=== PATIENT | female | born 1985 | race Caucasian/White ===

== ENCOUNTER 2017-10-04 02:02 | Emergency (ER) | payer OTHER ==
[~2017-10-04] VITALS: Ht 162.6 cm; Wt 113.9 kg
[~2017-10-04 02:02] MED LIST: ACET500C5 PO; AMOX500C2 PO; BEN25 PO; DENIES MEDS; HYDR-3498 PO; IBUP400T22 PO; NITR-58 PO; OMEP20CA9 PO; PRED50TA PO; UDMYL PO; UDROBDM PO
[2017-10-04 02:07] VITALS: Ht 162.6 cm; Wt 113.9 kg
[2017-10-04] MEDS ORDERED: ONDANSETRON 4 MG INJ IV STA (03:16)
[2017-10-04] MEDS ORDERED: SOD CHLORIDE 0.9% 1,000 ML IV STA (03:16)
[2017-10-04] MEDS ORDERED: FAMOTIDINE 20 MG INJ IV STA (03:16)
[2017-10-04] MEDS ORDERED: morphine 4 MG/ML VIAL IV STA (03:16)
[2017-10-04 04:01] LABS: ADD UMIC YES; UR ASCORBIC ACID NEGATIVE (NEGATIVE); UR BACTERIA FEW /HPF (NONE SEEN); UR BILIRUBIN (Dip) NEGATIVE (NEGATIVE); UR BLOOD (Dip) NEGATIVE (NEGATIVE); UR CLARITY CLEAR (CLEAR); UR COLOR YELLOW (YELLOW); UR GLUCOSE (Dip) 1+ mg/dL (NEGATIVE); UR KETONES (Dip) 2+ mg/dL (NEGATIVE); UR LEUKOCYTE ESTERASE (Dip) TRACE Leu/ul (NEGATIVE); UR MUCUS MANY /HPF (NONE SEEN); UR NITRITE (Dip) NEGATIVE (NEGATIVE); UR RBC 3 /HPF (0-5); UR SPECIFIC GRAVITY (Dip) 1.029 (1.003-1.030); UR SQUAMOUS EPITHELIAL CELL FEW /HPF (FEW); UR TOTAL PROTEIN (Dip) 2+ mg/dl (NEGATIVE); UR UROBILINOGEN (Dip) NEGATIVE (NEGATIVE)
--- NOTE | 2017-10-04 04:08 | ERD ---
ER Documentation Chief Complaint Chief Complaint vomiting for 3 days unable to hold down fluids HPI 31-year-old female presents here to emergency department for complaints of vomiting episodes that started 3 days ago. Patient also has periumbilical pain. Patient is complaining of body aches also. Patient has been having on and off periumbilical pelvic pain, sharp pain, not better or worse with anything. Patient also started vomiting and states that abdominal pain becomes worse with vomiting. Patient last menstruation was in August, cannot remember when. Patient denies any vaginal bleeding. Patient denies any flank pain. Patient denies any hematuria or dysuria. ROS All systems reviewed and are negative except as per history of present illness. Medications Home Meds Active Scripts Magaldrate/Simethicone* (Mag-Al Plus Suspension*) 30 Ml Oral.susp, 30 ML PO Q6H Y for GASTROINTESTINAL UPSET, #120 ML Prov:TRAN ARAUJO NP 06/08/16 Omeprazole* (Prilosec*) 20 Mg Capsule.dr, 20 MG PO DAILY, #30 CAP Prov:TRAN ARAUJO NP 06/08/16 Prednisone* (Prednisone*) 50 Mg Tablet, 50 MG PO DAILY, #5 TAB Prov:TRAN ARAUJO NP 06/08/16 Diphenhydramine Hcl* (Benadryl*) 25 Mg Cap, 25 MG PO Q6 Y for ITCHING/RASH, #30 TAB Prov:TRAN ARAUJO NP 06/08/16 Hydrocodone Bit-Acetaminophen* ([place]*) 5-325 Mg Tab, 1 TAB PO Q6 Y for PAIN, # 20 TAB Prov:TRAN ARAUJO NP 06/08/16 Nitrofurantoin Monohyd Macrocr* (Macrobid*) 100 Mg Capsr, 100 MG PO BID for 7 Days, CAP Prov:TRAN ARAUJO NP 06/08/16 Amoxicillin* (Amoxicillin*) 500 Mg Cap, 500 MG PO TID, #21 CAP 0 Refills Prov:BISHOP THOMPSON PA-C 02/06/16 Guaifenesin-Dextromethorphan* (Robitussin* DM) 100MG/10MG/5ML Syrup, 5 ML PO Q6H Y for COUGH, #120 ML 0 Refills Prov:BISHOP THOMPSON PA-C 02/06/16 Ibuprofen* (Motrin*) 400 Mg Tab, 400 MG PO Q6, #30 TAB 0 Refills Prov:BISHOP THOMPSON PA-C 02/06/16 Acetaminophen* (Tylophen*) 500 Mg Capsule, 1 CAP PO Q6H Y for PAIN AND OR ELEVATED TEMP, #30 CAP 0 Refills Prov:BISHOP THOMPSON PA-C 02/06/16 Reported Medications [Denies Meds] No Conflict Check 01/13/11 Allergies Allergies: Coded Allergies: No Known Drug Allergies (Verified Allergy, Mild, 10/04/17) PMhx/Soc History of Surgery: Yes ( x2) Anesthesia Reaction: No Hx Neurological Disorder: No Hx Respiratory Disorders: No Hx Cardiac Disorders: No Hx Psychiatric Problems: No Hx Miscellaneous Medical Probl: No Hx Alcohol Use: No Hx Substance Use: No Hx Tobacco Use: No Smoking Status: Never smoker FmHx Family History: No coronary disease, No diabetes, No other Physical Exam Vitals Vital Signs Date Time Temp Pulse Resp B/P Pulse Ox O2 Delivery O2 Flow Rate FiO2 10/04/17 02:07 97.9 60 24 151/77 100 Physical Exam GENERAL: The patient is well developed and appropriate for usual state of health, in no apparent distress. CHEST: Clear to auscultation bilaterally. There are no rales, wheezes or rhonchi. HEART: Regular rate and rhythm. No murmurs, clicks, rubs or gallops. No S3 or S4. ABDOMEN: Soft, nontender and nondistended. Good bowel sounds. No rebound or guarding. No gross peritonitis. No gross organomegaly or masses. No Vega sign or McBurney point tenderness. BACK: No midline or flank tenderness. EXTREMITIES: Equal pulses bilaterally. There is no peripheral clubbing, cyanosis or edema. No focal swelling or erythema. Full range of motion. Grossly neurovascularly intact. NEURO: Alert and oriented. Cranial nerves 2-12 intact. Motor strength in all 4 extremities with 5/5 strength. Sensation grossly intact. Normal speech and gait. SKIN: There is no apparent rash or petechia. The skin is warm and dry. HEMATOLOGIC AND LYMPHATIC: There is no evidence of excessive bruising or lymphedema. No gross cervical, axillary, or inguinal lymphadenopathy. Result Diagram: 10/04/17 0340 10/04/17 0340 Results 24 hrs Laboratory Tests Test 10/04/17 03:30 10/04/17 03:40 Urine Color YELLOW Urine Clarity CLEAR Urine pH 6.0 Urine Specific [place] 1.029 Urine Ketones 2+mg/dL Urine Nitrite NEGATIVEmg/dL Urine Bilirubin NEGATIVEmg/dL Urine Urobilinogen NEGATIVEmg/dL Urine Leukocyte Esterase TRACELeu/ul Urine Microscopic RBC 3/HPF Urine Microscopic WBC 1/HPF Urine Squamous Epithelial Cells FEW/HPF Urine Bacteria FEW/HPF Urine Mucus MANY/HPF Urine Hemoglobin NEGATIVEmg/dL Urine Glucose 1+mg/dL Urine Total Protein 2+mg/dl White Blood Count 12.510^3/ul Red Blood Count 5.2210^6/ul Hemoglobin 14.9g/dl Hematocrit 45.1% Mean Corpuscular Volume 86.4fl Mean Corpuscular Hemoglobin 28.5pg Mean Corpuscular Hemoglobin Concent 33.0g/dl Red Cell Distribution Width 13.3% Platelet Count 04135^3/UL Mean Platelet Volume 10.2fl Neutrophils % 90.8% Lymphocytes % 6.6% Monocytes % 1.9% Eosinophils % 0.0% Basophils % 0.2% Nucleated Red Blood Cells % 0.0/100WBC Neutrophils # 11.310^3/ul Lymphocytes # 0.810^3/ul Monocytes # 0.210^3/ul Eosinophils # 0.010^3/ul Basophils # 0.010^3/ul Nucleated Red Blood Cells # 0.010^3/ul Sodium Level 143mmol/L Potassium Level 3.6mmol/L Chloride Level 107mmol/L Carbon Dioxide Level 24mmol/L Anion Gap 16 Blood Urea Nitrogen 8mg/dl Creatinine 0.66mg/dl Glucose Level 124mg/dl Calcium Level 9.2mg/dl Total Bilirubin 0.5mg/dl Direct Bilirubin 0.00mg/dl Indirect Bilirubin 0.5mg/dl Aspartate Amino Transf (AST/SGOT) 21IU/L Alanine Aminotransferase (ALT/SGPT) 30IU/L Alkaline Phosphatase 71IU/L Total Protein 7.6g/dl Albumin 4.4g/dl Globulin 3.20g/dl Albumin/Globulin Ratio 1.37 Lipase 50U/L Beta HCG, Quantitative 09048.0mIU/ml Current Medications Medications (Trade) Dose Ordered Sig/Lidia Route PRN Reason Start Time Stop Time Status Last Admin Dose Admin Sodium Chloride (NS) 1,000 ml @ 1,000 mls/hr Q1H STAT IV 10/04/17 03:16 10/04/17 04:22 DC 10/04/17 03:58 Morphine Sulfate (morphine) 4 mg ONCE STAT IV 10/04/17 03:16 10/04/17 03:41 DC Ondansetron HCl (Zofran Inj) 4 mg ONCE STAT IV 10/04/17 03:16 10/04/17 03:17 DC 10/04/17 03:16 Famotidine (Pepcid Iv) 20 mg ONCE STAT IV 10/04/17 03:16 10/04/17 03:17 DC 10/04/17 03:16 Patient was given Zofran here in the emergency department. After treatment, patient was able to tolerate po fluids here in the emergency department without any vomiting. There is no signs and symptoms of dehydration. Pepcid was given here in emergency department. Morphine was not given. PROCEDURE: ULTRASOUND OBSTETRICAL CLINICAL INDICATION: 31-year-old female with pelvic pain and vomiting. TECHNIQUE: Multiple sonographic images of the pelvis were obtained. The images were reviewed on a PACS workstation. COMPARISON: None. FINDINGS: There is a single intrauterine gestation. The mean sac diameter is 1.47 cm. This yields an estimated gestational age of 6 weeks and 1 day. The estimated date of delivery is May 29, 2018. There is no evidence for a pole. There is no evidence for free fluid. The right ovary has a normal echotexture and measures 3.2 x 2.5 x 2.3 cm. There is normal flow to the right ovary. The left ovary was not visualized. No adnexal masses are noted. IMPRESSION: 1. Single early intrauterine gestation of approximately 6 weeks 1 day without evidence for a pole. Clinical correlation and follow-up ultrasound is suggested. 2. The left ovary was not visualized. .Davon Galarza MD, Date Time Electronically viewed and signed by .Davon Galarza MD, on 10/04/2017 04:20 .M/ CC: TRAN ARAUJO NP Procedures/MDM Medical decision making: Patient symptoms of vomiting was likely is from hyperemesis gravidarum, patient has an incidental finding of , patient is approximately 6 weeks . No vaginal bleeding noted, no symptoms of any threatened . No suspicion for an acute appendicitis, acute abdominal emergencies, cholecystitis, diverticulitis, patient does not have any fever at this time. Patient's vomiting is controlled. No symptoms of dehydration. No urinary symptoms, no symptoms of urinary tract infection, pyelonephritis. Prescription was given for pills, Zofran, is advised to follow-up with primary care doctor 1-2 days for reevaluation of symptoms, see gynecology specialist for care. Patient was advised to return to emergency department for any worsening symptoms. Disposition: Home. Stable. Departure Diagnosis: Primary Impression: Hyperemesis gravidarum Additional Impression: Incidental Condition: Stable Patient Instructions: Hyperemesis Gravidarum TRAN ARAUJO NP Oct 04, 2017 04:08
--- NOTE | 2017-10-04 04:20 | RADRPT ---
PROCEDURE: ULTRASOUND OBSTETRICAL CLINICAL INDICATION: 31-year-old female with pelvic pain and vomiting. TECHNIQUE: Multiple sonographic images of the pelvis were obtained. The images were reviewed on a PACS workstation. COMPARISON: None. FINDINGS: There is a single intrauterine gestation. The mean sac diameter is 1.47 cm. This yields an estimate d gestational age of 6 weeks and 1 day. The estimated date of delivery is May 29, 2018. There is no evidence for a pole. There is no evidence for free fluid. The right ovary has a normal echote xture and measures 3.2 x 2.5 x 2.3 cm. There is normal flow to the right ovary. The left ovary was n ot visualized. No adnexal masses are noted. IMPRESSION: 1. Single early intrauterine gestation of approximately 6 weeks 1 day without evidence for a pole. Clinical correlation and follow-up ultrasound is suggested. 2. The left ovary was not visualized. .Davon Galarza MD, Date Time Electronically viewed and signed by .Davon Galarza MD, on 10/04/2017 04:20 .Virgilio/
[2017-10-04 04:28] LABS: BASOPHILS % 0.2 % (0.0-2.0); HEMATOCRIT 45.1 % (37.0-47.0); HEMOGLOBIN 14.9 g/dl (12.0-16.0); LYMPHOCYTES # 0.8 10^3/ul (0.8-2.9); LYMPHOCYTES % 6.6 % (15.0-51.0); MEAN CORPUSCULAR HEMOGLOBIN 28.5 pg (29.0-33.0); MEAN CORPUSCULAR VOLUME 86.4 fl (82.0-101.0); MEAN PLATELET VOLUME 10.2 fl (7.4-10.4); MONOCYTE # 0.2 10^3/ul (0.3-0.9); MONOCYTES % 1.9 % (0.0-11.0); NEUTROPHIL # 11.3 10^3/ul (1.6-7.5); NEUTROPHILS % 90.8 % (39.0-77.0); PLATELET COUNT 348 10^3/UL (140-415); RED BLOOD COUNT 5.22 10^6/ul (4.20-5.40); RED CELL DISTRIBUTION WIDTH 13.3 % (11.5-14.5); WHITE BLOOD COUNT 12.5 10^3/ul (4.8-10.8)
[2017-10-04 04:49] LABS: ALBUMIN 4.4 g/dl (3.3-4.9); ALBUMIN/GLOBULIN RATIO 1.37; BILIRUBIN,INDIRECT 0.5 mg/dl (0-1.1); BILIRUBIN,TOTAL 0.5 mg/dl (0.2-1.3); CALCIUM 9.2 mg/dl (8.4-10.2); CREATININE 0.66 mg/dl (0.44-1.00); POTASSIUM 3.6 mmol/L (3.5-5.1); TOTAL PROTEIN 7.6 g/dl (6.1-8.1)
[2017-10-04] MEDS ORDERED: ONDA4TAB14 PO (05:49)
[2017-10-04] MEDS ORDERED: FAMO-96 PO (05:49)
[2017-10-04] MEDS ORDERED: PNV1TABL12 PO (05:49)
== END 2017-10-04 05:57 | disposition home or self-care (01) ==
LOC: FTE 02:02
DX: R11.10 Vomiting, unspecified (principal); R10.2 Pelvic and perineal pain; Z33.1 Pregnant state, incidental
CPT/HCPCS: 76801; 76817; 80053; 81001; 83690; 84702; 85025; 86900; 86901; J2405; J7030; Z7610; 36415; 96374; 96375

== ENCOUNTER 2017-10-09 15:16 | Emergency (ER) | payer OTHER ==
[~2017-10-09] VITALS: Ht 162.6 cm; Wt 116.0 kg
[~2017-10-09 15:16] MED LIST changes: +FAMO-96 PO; +ONDA4TAB14 PO; +PNV1TABL12 PO
[2017-10-09 15:22] VITALS: Ht 162.6 cm; Wt 116.0 kg
[2017-10-09 16:59] LABS: ADD UMIC YES; UR ASCORBIC ACID NEGATIVE (NEGATIVE); UR BACTERIA FEW /HPF (NONE SEEN); UR BILIRUBIN (Dip) NEGATIVE (NEGATIVE); UR BLOOD (Dip) 3+ mg/dL (NEGATIVE); UR CLARITY CLEAR (CLEAR); UR COLOR YELLOW (YELLOW); UR GLUCOSE (Dip) NEGATIVE (NEGATIVE); UR KETONES (Dip) NEGATIVE (NEGATIVE); UR LEUKOCYTE ESTERASE (Dip) NEGATIVE Leu/ul (NEGATIVE); UR NITRITE (Dip) NEGATIVE (NEGATIVE); UR RBC 1 /HPF (0-5); UR SPECIFIC GRAVITY (Dip) 1.009 (1.003-1.030); UR TOTAL PROTEIN (Dip) NEGATIVE (NEGATIVE); UR UROBILINOGEN (Dip) NEGATIVE (NEGATIVE)
[2017-10-09 17:03] LABS: BASOPHIL # 0.1 10^3/ul (0.0-0.1); BASOPHILS % 0.4 % (0.0-2.0); EOSINOPHILS # 0.2 10^3/ul (0.0-0.5); EOSINOPHILS % 1.1 % (0.0-7.0); HEMATOCRIT 42.4 % (37.0-47.0); LYMPHOCYTES # 1.8 10^3/ul (0.8-2.9); MEAN PLATELET VOLUME 9.8 fl (7.4-10.4); MONOCYTE # 0.6 10^3/ul (0.3-0.9); MONOCYTES % 4.1 % (0.0-11.0); NEUTROPHIL # 11.3 10^3/ul (1.6-7.5); NEUTROPHILS % 81.1 % (39.0-77.0); PLATELET COUNT 335 10^3/UL (140-415); RED BLOOD COUNT 4.82 10^6/ul (4.20-5.40); WHITE BLOOD COUNT 13.9 10^3/ul (4.8-10.8)
--- NOTE | 2017-10-09 17:36 | RADRPT ---
PROCEDURE: US Pelvis. CLINICAL INDICATION: Pelvic pain, vaginal bleeding, female TECHNIQUE: Multiple sonographic images of the pelvis were obtained utilizing a transabdominal and endovaginal technique. The images were reviewed on a PACS workstation. COMPARISON: October 04, 2017 FINDINGS: The uterus is anteverted and measures 11.7 x 8 x 5.3 cm. Within the uterus, there is a mildly, irreg ular, gestational sac with a decidual reaction with a mean gestational sac diameter of 2 cm. This co rrelates with a very early 3-vcgd-4-day intrauterine . At this time, no yolk sac, jonathon e or cardiac activity is seen. Findings are suspicious for a blighted ovum, but not definitive . There is no evidence for free fluid. The right ovary has a normal echotexture and measures 3.9 x 3 x 2 cm . The left ovary has a normal echotexture and measures the 3 x 2.4 x 2 cm. No adnexal mass es are noted. There are no findings of ovarian torsion. Normal follicular activity is present. IMPRESSION: 1. Persistent, mildly irregular gestational sac with a mean gestational sac diameter of 2 cm. At thi s time, the estimated ultrasound age is 6 weeks 6 days. No pole, yolk sac or cardiac act ivity is seen. Findings are suspicious for a blighted ovum, but not definitive. A follow-up ultrasou nd in 1-2 weeks is suggested. 2. Otherwise, unremarkable pelvic ultrasound. RPTAT: EE .Fernanda Daily MD, Date Time Electronically viewed and signed by .Fernanda Daily MD, on 10/09/2017 17:36 .F/
[2017-10-09] MEDS ORDERED: ONDA4TAB14 PO (18:30)
--- NOTE | 2017-10-09 18:30 | ERD ---
ER Documentation Chief Complaint Chief Complaint Vaginal bleeding, Abdominal cramping, Vomiting HPI The patient is a 31-year-old female, A1, who presents to the emergency department with complaints of lower abdominal cramping and vaginal bleeding. The patient reports that her last menstrual period was 08/19/2017, and she believes that she is approximately 7 weeks . She notes that she was seen in the emergency department on 10/04/2017, after experiencing 3 days of nausea and vomiting. Patient was prescribed Zofran, which she states improves her vomiting. However, she recently ran out of the Zofran, and therefore is requesting a refill. During that visit, patient was found to be . Beta hCG was 40,204. Ultrasound imaging, read by radiologist, revealed "single early intrauterine gestation of approximately 6 weeks 1 day without evidence for a pole." Today, after going to the bathroom, she noted onset of vaginal bleeding with passage of several large clots. She also admits to associated cramping pain to the lower abdomen. The pain is intermittent, and mild. She rates her current pain as 3 out of 10. She denies any dizziness, weakness, headache, chest pain, palpitations, shortness of breath , lower extremity swelling, fevers, sweats, chills, diarrhea. Denies any new vaginal discharge. The patient has not yet seen an INFORMATICA ARCHITECT, though plans to in the next several days. No other complaints at this time. ROS All systems reviewed and are negative except as per history of present illness. Medications Home Meds Active Scripts Ondansetron (Ondansetron Odt) 4 Mg Tab.rapdis, 4 MG PO Q6H Y for NAUSEA AND/OR VOMITING, #8 TAB Prov:AP SOLO PA-C 10/09/17 Pnv Cmb#21/Iron/Folic Acid ( Complete [place]) 1 Each Tablet, 1 EACH PO DAILY, #100 TAB Prov:TRAN ARAUJO NP 10/04/17 Famotidine* (Pepcid*) 20 Mg Tablet, 20 MG PO BID, #20 TAB Prov:TRAN ARAUJO NP 10/04/17 Ondansetron (Ondansetron Odt) 4 Mg Tab.rapdis, 4 MG PO Q8 Y for NAUSEA AND/OR VOMITING, #30 TAB Prov:TRAN ARAUJO NP 10/04/17 Magaldrate/Simethicone* (Mag-Al Plus Suspension*) 30 Ml Oral.susp, 30 ML PO Q6H Y for GASTROINTESTINAL UPSET, #120 ML Prov:TRAN ARAUJO NP 06/08/16 Omeprazole* (Prilosec*) 20 Mg Capsule.dr, 20 MG PO DAILY, #30 CAP Prov:TRAN ARAUJO NP 06/08/16 Prednisone* (Prednisone*) 50 Mg Tablet, 50 MG PO DAILY, #5 TAB Prov:TRAN ARAUJO NP 06/08/16 Diphenhydramine Hcl* (Benadryl*) 25 Mg Cap, 25 MG PO Q6 Y for ITCHING/RASH, #30 TAB Prov:TRAN ARAUJO NP 06/08/16 Hydrocodone Bit-Acetaminophen* ([place]*) 5-325 Mg Tab, 1 TAB PO Q6 Y for PAIN, # 20 TAB Prov:TRAN ARAUJO NP 06/08/16 Nitrofurantoin Monohyd Macrocr* (Macrobid*) 100 Mg Capsr, 100 MG PO BID for 7 Days, CAP Prov:TRAN ARAUJO NP 06/08/16 Amoxicillin* (Amoxicillin*) 500 Mg Cap, 500 MG PO TID, #21 CAP 0 Refills Prov:BISHOP THOMPSON-C 02/06/16 Guaifenesin-Dextromethorphan* (Robitussin* DM) 100MG/10MG/5ML Syrup, 5 ML PO Q6H Y for COUGH, #120 ML 0 Refills Prov:BISHOP THOMPSON-C 02/06/16 Ibuprofen* (Motrin*) 400 Mg Tab, 400 MG PO Q6, #30 TAB 0 Refills Prov:BISHOP THOMPSON-C 02/06/16 Acetaminophen* (Tylophen*) 500 Mg Capsule, 1 CAP PO Q6H Y for PAIN AND OR ELEVATED TEMP, #30 CAP 0 Refills Prov:BISHOP THOMPSON-C 02/06/16 Reported Medications [Denies Meds] No Conflict Check 01/13/11 Allergies Allergies: Coded Allergies: No Known Drug Allergies (Verified Allergy, Mild, 10/04/17) PMhx/Soc Medical and Surgical Hx: pt denies Medical Hx, pt denies Surgical Hx History of Surgery: Yes ( x2) Anesthesia Reaction: No Hx Neurological Disorder: No Hx Respiratory Disorders: No Hx Cardiac Disorders: No Hx Psychiatric Problems: No Hx Miscellaneous Medical Probl: No Hx Alcohol Use: No Hx Substance Use: No Hx Tobacco Use: No Physical Exam Vitals Vital Signs Date Time Temp Pulse Resp B/P Pulse Ox O2 Delivery O2 Flow Rate FiO2 10/09/17 15:22 98.3 63 19 135/78 99 Physical Exam GENERAL APPEARANCE: Well-developed, well-nourished female in no acute distress. HEENT: Head is normocephalic, atraumatic. No scleral pallor or icterus. Pupils are equal, round, reactive to light. Extraocular movements intact. Moist mucous membranes. NECK: Supple. RESPIRATORY: Lungs are clear to auscultation bilaterally. Symmetrical expansion. Equal breath sounds. CARDIOVASCULAR: Regular rate and rhythm. S1, S2 normal. Distal pulses are palpable 2+ bilaterally. Capillary refill is less than 2 seconds. GASTROINTESTINAL: Abdomen is soft, nontender, nondistended. No guarding. No rebound tenderness. FLANKS: No CVA tenderness bilaterally. BACK: No midline tenderness. EXTREMITIES: No clubbing, cyanosis or edema. Normal skin perfusion. Moving all extremities. Muscle tone is normal. NEUROLOGIC: The patient is alert, awake and oriented x3. No focal neurologic deficits. INTEGUMENT: Skin is intact warm and dry. No rashes or petechiae present. Normal turgor. PSYCHIATRIC: Cooperative. Appropriate. Result Diagram: 10/09/17 1645 Results 24 hrs Laboratory Tests Test 10/09/17 16:40 10/09/17 16:45 Urine Color YELLOW Urine Clarity CLEAR Urine pH 7.0 Urine Specific [place] 1.009 Urine Ketones NEGATIVEmg/dL Urine Nitrite NEGATIVEmg/dL Urine Bilirubin NEGATIVEmg/dL Urine Urobilinogen NEGATIVEmg/dL Urine Leukocyte Esterase NEGATIVELeu/ul Urine Microscopic RBC 1/HPF Urine Microscopic WBC 1/HPF Urine Bacteria FEW/HPF Urine Hemoglobin 3+mg/dL Urine Glucose NEGATIVEmg/dL Urine Total Protein NEGATIVEmg/dl White Blood Count 13.910^3/ul Red Blood Count 4.8210^6/ul Hemoglobin 14.0g/dl Hematocrit 42.4% Mean Corpuscular Volume 88.0fl Mean Corpuscular Hemoglobin 29.0pg Mean Corpuscular Hemoglobin Concent 33.0g/dl Red Cell Distribution Width 13.0% Platelet Count 68900^3/UL Mean Platelet Volume 9.8fl Neutrophils % 81.1% Lymphocytes % 13.0% Monocytes % 4.1% Eosinophils % 1.1% Basophils % 0.4% Nucleated Red Blood Cells % 0.0/100WBC Neutrophils # 11.310^3/ul Lymphocytes # 1.810^3/ul Monocytes # 0.610^3/ul Eosinophils # 0.210^3/ul Basophils # 0.110^3/ul Nucleated Red Blood Cells # 0.010^3/ul Beta HCG, Quantitative 27020.0mIU/ml Procedures/MDM DIAGNOSTIC TESTS AND INTERPRETATION: PROCEDURE: US Pelvis. CLINICAL INDICATION: Pelvic pain, vaginal bleeding, female TECHNIQUE: Multiple sonographic images of the pelvis were obtained utilizing a transabdominal and endovaginal technique. The images were reviewed on a PACS workstation. COMPARISON: October 04, 2017 FINDINGS: The uterus is anteverted and measures 11.7 x 8 x 5.3 cm. Within the uterus, there is a mildly, irregular, gestational sac with a decidual reaction with a mean gestational sac diameter of 2 cm. This correlates with a very early 6-week- 6-day intrauterine . At this time, no yolk sac, pole or cardiac activity is seen. Findings are suspicious for a blighted ovum, but not definitive. There is no evidence for free fluid. The right ovary has a normal echotexture and measures 3.9 x 3 x 2 cm . The left ovary has a normal echotexture and measures the 3 x 2.4 x 2 cm. No adnexal masses are noted. There are no findings of ovarian torsion. Normal follicular activity is present. IMPRESSION: 1. Persistent, mildly irregular gestational sac with a mean gestational sac diameter of 2 cm. At this time, the estimated ultrasound age is 6 weeks 6 days. No pole, yolk sac or cardiac activity is seen. Findings are suspicious for a blighted ovum, but not definitive. A follow-up ultrasound in 1- 2 weeks is suggested. 2. Otherwise, unremarkable pelvic ultrasound. .Fernanda Daily MD, Date Time Electronically viewed and signed by .Fernanda Daily MD, MD on 10/09/2017 17:36 ED COURSE: The patient was stable throughout ED course. I kept the patient and/or family informed of laboratory and diagnostic imaging results throughout the ED course. The case was reviewed and discussed with Dr. Dubois, ED supervising physician, who agrees with the plan of care including labs and imaging as appropriate. He recommends INFORMATICA ARCHITECT consultation, given increasing beta hCG and ultrasound imaging findings, in the setting of vaginal bleeding. 6:21 PM Discussed patient case (presentation, vitals and all results - imaging, laboratory) with Dr. Gonzalez, on-call INFORMATICA ARCHITECT, who states that there is no concern for ectopic . Rather, he states that patient's presentation is more consistent with anembryonic . Recommends that the patient be discharged home to follow up at [facility], [facility], or with her OB/ TOOL SETTER APPRENTICE for further evaluation and to discuss possible D&C. He states that at this time, there is no indication for admission, further evaluation/testing or emergent D&C. After rest, the patient reports no new complaints. Her cramping and bleeding have resolved. Discussed Dr. Gonzalez's recommendations with Dr. Dubois, who recommends that the patient have 1-2 day follow up for repeat beta hCG. MEDICAL DECISION MAKING: This is a 31-year-old female presenting to the Emergency Department complaining of vaginal bleeding and cramping. She had no significant abnormalities noted on physical examination. Vital signs were normal. Differential diagnosis includes, but is not limited to, ectopic , cervicitis, fibroids, molar , implantation bleeding, heterotopic , septic , missed , incomplete , inevitable , threatened , complete , coagulopathy, fibroids, adenomyosis, endometriosis, neoplasia, vaginitis, PID, vaginal trauma , dysfunctional uterine bleeding. Beta hCG is 74,443 (increased from 40,204). Rh (+), no indication for RhoGAM. Ultrasound performed revealed a persistent, mildly irregular gestational sac with a mean gestational sac diameter of 2 cm, with estimated ultrasound age is 6 weeks 6 days. No pole, yolk sac or cardiac activity is seen. Findings are suspicious for a blighted ovum, but not definitive. After rest, the patient reports no new complaints. Upon review and interpretation of the patient's presentation and overall ER course, I believe the patient's symptoms are most consistent with threatened , vaginal bleeding in , likely failed /anembryonic gestation. At this time the patient patient is in stable condition with and therefore she will be discharged home with strict return precautions for signs of deteriorating or worsening condition. The patient is advised to follow up with an INFORMATICA ARCHITECT or in the ED within 1-2 days for repeat beta hCG, reevaluation and further management, or return to the ER sooner for any worsening symptoms. On patient's next visit, plan to consult INFORMATICA ARCHITECT again regarding patient disposition. I shared all laboratory and diagnostic imaging studies with the patient at length and in great detail, and the patient verbally understands and agrees with the plan for further observation and care as an outpatient. At the time of discharge, all questions were answered. Departure Diagnosis: Primary Impression: Vaginal bleeding in patient at less than 20 weeks gestation Additional Impression: Anembryonic Condition: Stable Patient Instructions: Bleeding During Early , Miscarriage (Incomplete) , Possible Miscarriage (Threatened ), Vaginal Bleed in Referrals: [facility] Additional Instructions: Call your INFORMATICA ARCHITECT TOMORROW for an appointment during the next 1-2 days. If you cannot be seen by your INFORMATICA ARCHITECT, return to the ED. See the doctor sooner or return here if your condition worsens before your appointment time. AP SOLO PA-C Oct 09, 2017 18:30
== END 2017-10-09 18:50 | disposition home or self-care (01) ==
LOC: FTE 15:16
DX: O02.0 Blighted ovum and nonhydatidiform mole (principal)
CPT/HCPCS: 36415; 76801; 81001; 84702; 85025; 86900; 86901

== ENCOUNTER 2017-10-10 13:42 | Emergency (ER) | payer OTHER ==
[~2017-10-10] VITALS: Ht 170.2 cm; Wt 114.7 kg
[2017-10-10 13:45] VITALS: Ht 170.2 cm; Wt 114.7 kg
--- NOTE | 2017-10-10 16:28 | ERD ---
ER Documentation Chief Complaint Chief Complaint pelvic pain, told yesterday possible misscarriage. 7wks preg denies bleed HPI 31-year-old female patient with no significant past medical history is a A1 presents to the ED for further evaluation and treatment for her possible incomplete miscarriage. Patient denies any current vaginal bleeding or abdominal pain. Denies any fever, chills, nausea, vomiting, diarrhea, chest pain, shortness of breath. Patient's last menstruation was on August 19, 2017. Patient had a beta hCG of 74,443. She was noted to have a possible blighted ovum on her ultrasound yesterday and went to [facility] and they stated that they do not perform a dilation and curettage. Reports that she presents today for further evaluation and checkup. ROS All systems reviewed and are negative except as per history of present illness. Medications Home Meds Active Scripts Ondansetron (Ondansetron Odt) 4 Mg Tab.rapdis, 4 MG PO Q6H Y for NAUSEA AND/OR VOMITING, #8 TAB Prov:AP SOLO PA-C 10/09/17 Pnv Cmb#21/Iron/Folic Acid ( Complete Caplet) 1 Each Tablet, 1 EACH PO DAILY, #100 TAB Prov:TRAN ARAUJO NP 10/04/17 Famotidine* (Pepcid*) 20 Mg Tablet, 20 MG PO BID, #20 TAB Prov:TRAN ARAUJO NP 10/04/17 Ondansetron (Ondansetron Odt) 4 Mg Tab.rapdis, 4 MG PO Q8 Y for NAUSEA AND/OR VOMITING, #30 TAB Prov:TRAN ARAUJO NP 10/04/17 Magaldrate/Simethicone* (Mag-Al Plus Suspension*) 30 Ml Oral.susp, 30 ML PO Q6H Y for GASTROINTESTINAL UPSET, #120 ML Prov:TRAN ARAUJO NP 06/08/16 Omeprazole* (Prilosec*) 20 Mg Capsule.dr, 20 MG PO DAILY, #30 CAP Prov:TRAN ARAUJO NP 06/08/16 Prednisone* (Prednisone*) 50 Mg Tablet, 50 MG PO DAILY, #5 TAB Prov:TRAN ARAUJO NP 06/08/16 Diphenhydramine Hcl* (Benadryl*) 25 Mg Cap, 25 MG PO Q6 Y for ITCHING/RASH, #30 TAB Prov:TRAN ARAUJO NP 06/08/16 Hydrocodone Bit-Acetaminophen* ([place]*) 5-325 Mg Tab, 1 TAB PO Q6 Y for PAIN, # 20 TAB Prov:TRAN ARAUJO NP 06/08/16 Nitrofurantoin Monohyd Macrocr* (Macrobid*) 100 Mg Capsr, 100 MG PO BID for 7 Days, CAP Prov:TRAN ARAUJO NP 06/08/16 Amoxicillin* (Amoxicillin*) 500 Mg Cap, 500 MG PO TID, #21 CAP 0 Refills Prov:BISHOP THOMPSON PA-C 02/06/16 Guaifenesin-Dextromethorphan* (Robitussin* DM) 100MG/10MG/5ML Syrup, 5 ML PO Q6H Y for COUGH, #120 ML 0 Refills Prov:BISHOP THOMPSON PA-C 02/06/16 Ibuprofen* (Motrin*) 400 Mg Tab, 400 MG PO Q6, #30 TAB 0 Refills Prov:BISHOP THOMPSON PA-C 02/06/16 Acetaminophen* (Tylophen*) 500 Mg Capsule, 1 CAP PO Q6H Y for PAIN AND OR ELEVATED TEMP, #30 CAP 0 Refills Prov:BISHOP THOMPSON PA-C 02/06/16 Reported Medications [Denies Meds] No Conflict Check 01/13/11 Allergies Allergies: Coded Allergies: No Known Drug Allergies (Verified Allergy, Mild, 10/10/17) PMhx/Soc Medical and Surgical Hx: pt denies Medical Hx History of Surgery: Yes ( x2) Anesthesia Reaction: No Hx Neurological Disorder: No Hx Respiratory Disorders: No Hx Cardiac Disorders: No Hx Psychiatric Problems: No Hx Miscellaneous Medical Probl: No Hx Alcohol Use: No Hx Substance Use: No Hx Tobacco Use: No Smoking Status: Never smoker Physical Exam Vitals Vital Signs Date Time Temp Pulse Resp B/P Pulse Ox O2 Delivery O2 Flow Rate FiO2 10/10/17 13:45 98.7 69 18 139/93 99 Physical Exam Const: Soe-byk-wanfvacdx, well-nourished. In no acute distress. Head: Atraumatic, normocephalic Eyes: Normal Conjunctiva without injection. No purulent discharge. ENT: Normal external ear, nose. Moist oropharynx without tonsillar exudates. Non -erythematous pharynx. Uvula midline. No drooling. No trismus. Neck: No cervical midline tenderness. Full range of motion. No meningismus. No cervical lymphadenopathy. No JVD. Resp: Clear to auscultation bilaterally. No wheezing, rhonchi, rales, or crackles. No accessory muscle use. No retractions. Cardio: Regular rate and rhythm. No murmurs, rubs or gallops. Abd: Soft, nontender, non distended. Normal bowel sounds. No palpable masses. No rebound tenderness. No guarding. Negative McBurney's point. Negative psoas sign. Negative obturator sign. Skin: No petechiae or rashes Back: No midline tenderness. No CVA tenderness. Ext: No cyanosis, or edema. Neur: Awake and alert. Normal gait. Normal coordination. Psych: Normal Mood and Affect Results 24 hrs Laboratory Tests Test 10/10/17 14:32 Beta HCG, Quantitative 93492.0mIU/ml Procedures/MDM 31-year-old female patient with no significant past medical history with a A1 presents to the ED complaining of further evaluation for a diagnosis possible incomplete miscarriage. Patient is afebrile and nontoxic-appearing. Patient has normal vital signs. A repeat beta-hCG was performed here in the ED. Patient's beta hCG was 74,443 yesterday and today it is 67,996. Ultrasound shows a blighted ovum with a gestational sac with no yolk sac or pole. Patient was educated that there is a risk for probable threatened . She was strictly instructed to follow-up with an EMERGENCY VEHICLE DISPATCHER for further evaluation and treatment in 2-3 days. This discussed with my supervising physician, Dr. Galvin who agreed with the management and discharge plan. Low suspicion for symptomatic anemia, ectopic , sepsis, PID, appendicitis, ovarian torsion, tubo-ovarian abscess, surgical abdomen, or other emergent conditions. Patient to follow up with EMERGENCY VEHICLE DISPATCHER in 2 days for further evaluation and treatment. Patient is to return sooner to the ED for any worsening symptoms. Patient's questions were answered. Patient understood and agreed with discharge plan. Departure Diagnosis: Primary Impression: Encounter for laboratory test Condition: Stable Patient Instructions: Possible Miscarriage (Threatened ) Referrals: [facility] YOU HAVE RECEIVED A MEDICAL SCREENING EXAM AND THE RESULTS INDICATE THAT YOU DO NOT HAVE A CONDITION THAT REQUIRES URGENT TREATMENT IN THE EMERGENCY DEPARTMENT. FURTHER EVALUATION AND TREATMENT OF YOUR CONDITION CAN WAIT UNTIL YOU ARE SEEN IN YOUR DOCTORS OFFICE WITHIN THE NEXT 1-2 DAYS. IT IS YOUR RESPONSIBILITY TO MAKE AN APPOINTMENT FOR FOLOW-UP CARE. IF YOU HAVE A PRIMARY DOCTOR --you should call your primary doctor and schedule an appointment IF YOU DO NOT HAVE A PRIMARY DOCTOR YOU CAN CALL OUR PHYSICIAN REFERRAL HOTLINE AT IF YOU CAN NOT AFFORD TO SEE A PHYSICIAN YOU CAN CHOSE FROM THE FOLLOWING [facility] [address] [address] [facility] [address] [facility] [address] [facility] [address] [facility] [address] [facility]. [facility] [address] [facility]. [facility] YOU HAVE RECEIVED A MEDICAL SCREENING EXAM AND THE RESULTS INDICATE THAT YOU DO NOT HAVE A CONDITION THAT REQUIRES URGENT TREATMENT IN THE EMERGENCY DEPARTMENT. FURTHER EVALUATION AND TREATMENT OF YOUR CONDITION CAN WAIT UNTIL YOU ARE SEEN IN YOUR DOCTORS OFFICE WITHIN THE NEXT 1-2 DAYS. IT IS YOUR RESPONSIBILITY TO MAKE AN APPOINTMENT FOR FOLOW-UP CARE. IF YOU HAVE A PRIMARY DOCTOR --you should call your primary doctor and schedule and appointment IF YOU DO NOT HAVE A PRIMARY DOCTOR YOU CAN CALL OUR PHYSICIAN REFERRAL HOTLINE AT . IF YOU CAN NOT AFFORD TO SEE A PHYSICIAN YOU CAN CHOSE FROM THE FOLLOWING [facility] INSTITUTIONS: [facility] [address] [place] [address] [facility] [address] [place] [address] [facility] + [facility] [address] [place] [address] [facility]RGENT C[facility]/SPECIALTIES Additional Instructions: Call your EMERGENCY VEHICLE DISPATCHER TOMORROW for an appointment during the next 2-3 days. See the doctor sooner or return here if your condition worsens before your appointment time - fever, worsening vaginal bleeding, vomiting, worsening abdominal pain, etc. YAEL EID PA-C Oct 10, 2017 16:28 YAEL EID PA-C Oct 10, 2017 16:28
== END 2017-10-10 16:11 | disposition home or self-care (01) ==
LOC: FTE 13:42
DX: R10.2 Pelvic and perineal pain (principal)
CPT/HCPCS: 36415; 84702; 99283

== ENCOUNTER 2017-11-18 11:10 | Emergency (ER) | END 2017-11-18 16:38 | disposition home or self-care (01) ==

== ENCOUNTER 2018-02-16 17:44 | Outpatient (CLI) | END 2018-02-16 20:30 | disposition home or self-care (01) ==

== ENCOUNTER 2018-02-16 20:37 | Emergency (ER) | END 2018-02-16 23:54 | disposition home or self-care (01) ==